=== PATIENT | male | born 1985 | race Two or more races ===

== ENCOUNTER 2023-12-12 18:52 | Emergency (ER) | payer OTHER ==
[~2023-12-12] VITALS: Ht 175.3 cm; Wt 79.8 kg
[2023-12-12] MEDS ORDERED: ALTACE2.5 MG PO (18:57)
[2023-12-12] MEDS ORDERED: ROGAINE60 GM TOP (18:58)
[2023-12-12] MEDS ORDERED: VORTIOXETINE (18:58)
[2023-12-12] MEDS ORDERED: ALTACE5 MG PO (21:07)
== END 2023-12-12 21:22 | disposition home or self-care (01) ==
LOC: ER 18:52
DX: R07.89 Other chest pain (principal)